=== PATIENT | female | born 1960 | race Caucasian/White ===

== ENCOUNTER 2021-07-11 17:31 | Emergency (ER) | payer OTHER ==
[2021-07-11 18:13] LABS: BASOPHIL 0.3 % (0-2); EOSINOPHIL 0.3 % (0-5); HCT 39.4 % (37.0-47.0); HGB 12.5 g/dl (12.5-16.0); LYMPHOCYTE 30.3 % (15-48); MCH 28.7 pg (25.0-31.0); MCHC 31.7 g/dL (32.0-36.0); MCV 90.4 fL (78.0-100.0); MONOCYTE 12.2 % (0-12); MPV 10.5 fL (6.0-9.5); NEUTROPHIL 56.6 % (41-80); NRBC 0; PLT 126 K/uL (150-400); RBC 4.36 M/uL (4.20-5.40); RDW 13.3 % (11.5-14.0)
[2021-07-11 18:14] LABS: WBC 2.9 K/uL (4.0-10.5)
[2021-07-11 18:31] LABS: BUN/CREAT RATIO (CALC) 20.3 RATIO; CREATININE 0.59 mg/dL (0.51-0.95); POTASSIUM 3.8 mmol/L (3.5-5.1)
[2021-07-11 18:48] LABS: INFLUENZA A NAA NEGATIVE (NEGATIVE)
[2021-07-11 18:49] LABS: CORONAVIRUS 2019 SARS-COV-2 POSITIVE (NEGATIVE)
[2021-07-11] MEDS ORDERED: ONDANSETRON ODT4 MG PO (20:16)
[2021-07-11] MEDS ORDERED: PREDNISONE 20MG20 MG PO (20:16)
[2021-07-11] MEDS ORDERED: MUCINEX DM ER1 EACH PO (20:16)
[2021-07-11] MEDS ORDERED: AZITHROMYCIN250 MG PO (20:17)
== END 2021-07-11 20:50 | disposition home or self-care (01) ==
LOC: FER 17:31
PROVIDERS: Internal Medicine
DX: U07.1 COVID-19 (principal); J12.82 Pneumonia due to coronavirus disease 2019
CPT/HCPCS: 36415; 71045; 80048; 84484; 85025; 93005; J1100; U0002